=== PATIENT | male | born 1930 | race Caucasian/White ===

== ENCOUNTER → 2017-05-20 | Outpatient (CLI) | payer MEDICARE ==
[~2017-05-20] MED LIST: ALLEGRA; FOSAMAX; FOSAMAX PO; OSCAL PO; TOPROL XL PO; ZOCOR
--- NOTE | ~2017-05-20 | CT71 ---
[facility] A Service of [facility] & [facility] RADIOLOGY TEXT RESULTS PATIENT: LUH MACK [facility] [birth year] UNIT #: [id number] AGE: [address]: Brennon Keller MD SEX: M ORDER DR: [id number] [facility] [address] [place], [place] [address] [id number] O MR#: [id number] Acc #: [id number] NAME: LUH MACK. : 1930 SEX: M STUDY DATE/TIME: 05/20/2017 14:12 UNIT: [facility] ROOM: STUDY DESCRIPTION: CT Head Wo Contrast Attending Physician: Brennon Keller M.D. Referring Physician: Brennon Keller M.D. Ordering Physician: Brennon Keller M.D. Primary Care Physician: Brennon Keller M.D. MEDICAL IMAGING REPORT This report is preliminary unless electronic signature is present EXAM Head CT without HISTORY Subjective memory complaints. The patient feels like something is crawling in his head for 6 months. No history of cancer. Patient has history of hypertension. COMMENT Routine noncontrast head CT is reviewed. This CT exam was performed with one or more of the following radiation dose reduction techniques: automatic exposure control, adjustment of mA and/or kV according to patient size, and iterative reconstruction. COMPARISON 03/26/2008 FINDINGS There is small air fluid level in the left mastoid tip and some partial opacification of the right mastoid tip. The left side changes are new from 2007. There are moderate to severe vascular calcifications at the base of the brain. The paranasal sinuses were included showing only minor mucosal thickening. There is no extraaxial fluid collection. There is mildly disproportionate enlargement of the ventricles when compared to the sulci and this has changed from 2007. Also, some progression of the periventricular white matter low-attenuation, now mild to moderate. Findings are nonspecific and could be due to somewhat disproportionate central volume loss, but please correlate for any clinical concern for normal pressure hydrocephalus. There is no acute intracranial hemorrhage or intracranial mass effect. There is no midline shift. The basilar cisterns are patent. Please correlate for risk factors for small vessel disease. No acute cortical infarct is suspected. [facility] A Service of [facility] & [facility] RADIOLOGY TEXT RESULTS PATIENT: LUH MACK LOCATION: [facility] : [birth year] UNIT #: [id number] AGE: [address]: Brennon Keller MD SEX: M ORDER DR: IMPRESSION 1. Interval increase in size of the ventricular system with some increased periventricular white matter low-attenuation since the study of 2007. This disproportionate ventricular enlargement could be related to central volume loss, but please correlate for any clinical concern for normal pressure hydrocephalus given the patient's mental status changes. Otherwise, no acute intracranial abnormality is suspected. 2. There is [id number] atherosclerotic vascular calcification at the base of the brain. 3. Some fluid or inflammatory change in the mastoid air cells new on the left side and please correlate with physical exam findings. Dictated by... Maria De Jesus Oropeza M.D. THIS IS AN ELECTRONICALLY VERIFIED REPORT Maria De Jesus Oropeza M.D. at 05/22/2017 4:11 PM SAC/to TD: 05/21/2017 07:35 JOB #: [id number] MEDICAL IMAGING REPORT Page 1 of 1 COPY
== END | disposition home or self-care (01) ==
LOC: CCAT 12:55
DX: R41.89 Other symptoms and signs involving cognitive functions and awareness (principal); R93.0 Abnormal findings on diagnostic imaging of skull and head, not elsewhere classified
CPT/HCPCS: 70450